=== PATIENT | female | born 1990 | race Caucasian/White ===

== ENCOUNTER 2016-12-04 05:35 | Inpatient (IN) | payer OTHER ==
[~2016-12-04] VITALS: Ht 157.5 cm; Wt 66.2 kg
[~2016-12-04 05:35] MED LIST: FERR325T39 PO; IBUP800T28 PO; PREN1TAB47 PO
[2016-12-04] MEDS ORDERED: Oxytocin 30 Units/500 mL LR Premix IV ONE (05:45)
[2016-12-04] MEDS ORDERED: Lactated Ringer's 1,000 ML IV SCH (06:21)
[2016-12-04] MEDS ORDERED: Benzocaine (Dermoplast) 20% 60 Gm Spray TOPICAL PRN (06:25)
[2016-12-04] MEDS ORDERED: Methylergonovine 0.2 mg/mL Inj IM PRN (06:25)
[2016-12-04] MEDS ORDERED: Witch Hazel-Glycerin Pads TOPICAL PRN (06:25)
[2016-12-04] MEDS ORDERED: LANOlin HPA 7 Gm Ointment TOPICAL PRN (06:25)
[2016-12-04] MEDS ORDERED: Carboprost 250 mCg/mL Inj IM PRN (06:25)
[2016-12-04] MEDS ORDERED: Hemorrhage Kit, Post Partum XX ONE (06:25)
[2016-12-04] MEDS ORDERED: Oxytocin 30 Units/500 mL LR 30 UNITS in IV Premix 1 EACH IV PRN (06:25)
[2016-12-04] MEDS ORDERED: HYDROcodone-APAP 5-325 mg Tablet PO PRN (06:25)
[2016-12-04] MEDS ORDERED: Oxytocin 10 Unit/mL Inj IM PRN (06:25)
--- NOTE | 2016-12-04 07:50 | HP ---
[address] [address] HISTORY AND PHYSICAL PATIENT: DIANNA JURADO : 1990 MR#: [id number] ADMIT: 12/04/2016 JOB ID: [id number] CHIEF COMPLAINT: Increasing contractions at term. HISTORY OF PRESENT ILLNESS: A 26-year-old, 3, three para 2, with an EDC of December 06, 2016 based on an LMP of March 01, 2016 and presents to the [facility] completely dilated with a bulging bag and a strong urge to push. She goes on to have a rapid delivery. When last checked in the office she was 4 cm dilated. PAST GYNECOLOGIC HISTORY: 3, para 2. First delivery in 2011 to a 7 pounds 9 ounce female pushed for 4 hours but no other complications. In 2013 she delivered at term at 6 pounds 14 ounce male, no complications. Third is her current. LABS: Blood type AB positive, antibody screen negative, rubella immune. Serology and hepatitis B surface antigen tests were negative. HIV test negative at the beginning of . Hematocrit 33.8 at 28 weeks. She is GBS positive by urine screen done at the beginning of . Gonorrhea and Chlamydia negative at that same time. A 28 week glucose tolerance test showed a fasting of 80, a 1-hour of 136, a 2-hour of 119. She presented late to care for risk screen. Her Pap was normal at the beginning of . ISSUES: 1. Establish care at 18 weeks. 2. GBS positive by urine culture. 3. History of issues, but declines a consultation at delivery. SOCIAL HISTORY: She is a , mother of two, nonsmoker. Does not drink alcohol during . She has previously denied recreational drug use. FAMILY HISTORY: None significant. PAST SURGICAL HISTORY: History of wisdom tooth extraction. REVIEW OF SYSTEMS: Unobtainable. PHYSICAL EXAMINATION: Please see nursing notes for vital signs. The patient is actively pushing completely dilated, +1 station. Membranes are ruptured. She goes on to deliver precipitously as per next note. ASSESSMENT: 1. Gravid at term. 2. GBS positive without time for GBS prophylaxis. 3. Precipitous delivery. [facility]
--- NOTE | 2016-12-04 07:58 | OP ---
[address] [address] OPERATIVE REPORT PATIENT: DIANNA JURADO : 1990 MR#: [id number] ADMIT: 12/04/2016 JOB ID: [id number] DELIVERY NOTE DATE OF DELIVERY: 12/04/2016 DELIVERY POSITION: OA. APGARS: 8 and 9. DELIVERY WEIGHT: 3460 grams (7 pounds 10 ounces), female. UMBILICAL CORD: Three-vessel cord. Normal appearance and length. PLACENTA: Side cord insertion. Normal appearance. No evidence of retained fragments. ESTIMATED BLOOD LOSS: 200 cc. ANESTHESIA: None. LACERATIONS: None. COMPLICATIONS: Precipitous delivery. The patient presented to the center 10 cm dilated with a bulging bag. Membranes ruptured on transfer to her room. She had a strong urge to push. She pushed only briefly, delivering without complication. Shoulders delivered easily. Placenta delivered quite quickly thereafter. Cord blood was therefore collected after placenta was delivered. Perineum inspected and showed no visible lacerations. Her fundus is firm. Her bleeding is slowing. I do not anticipate her needing an IV. Patient is GBS positive and did not have adequate time for prophylaxis due to her rapid labor. She plans to breastfeed. She is AB positive, rubella immune. Sponge and needle counts were correct after delivery. [facility]
--- NOTE | 2016-12-05 08:52 | PCM.DIOB ---
Obstetrical Disch Instruction Date of Service: Dec 05, 2016 Dates of Hospitalization Date of Hospital Admission Dec 04, 2016 at 05:45 Providers Admitting Physician: Kobe Thompson MD Primary Care Physician: Adalberto Mcdowell MD Attending Physician: Kobe Thompson MD Discharge Diagnosis Problems: (1) Encounter for full-term uncomplicated delivery Permanent Comment: Doing well on day #1 -- wants to be discharged. Last Edited By: Adalberto Mcdowell MD on May 28, 2014 07:11 Status: Acute ICD Code: O80 Diet Discharge Diet: No restrictions Activity Discharge Activity-General: No restrictions Dressing and Incisional Care Hygiene: May shower Follow Up Plan Follow-up Provider (F9): Kobe Thompson MD Follow-up appointment: Weeks (6) Call your provider for: Fever or Chills, Shortness of breath, Heavy vaginal bleeding, Excessive constipation, Red painful breasts Kobe Thompson MD Dec 05, 2016 08:51
[2016-12-05] MEDS ORDERED: IBUP-1827 PO (08:54)
[2016-12-05] MEDS ORDERED: DOCU-41 PO (08:54)
--- NOTE | 2016-12-05 09:48 | DIS ---
[address] [address] DISCHARGE SUMMARY PATIENT: DIANNA JURADO : 1990 MR#: [id number] ADMIT: 12/04/2016 JOB ID: [id number] DIS: 12/05/2016 DISCHARGE DIAGNOSES: 1. Precipitous vaginal delivery at term. 2. Group B Strep positive, incompletely treated due to problem #1. ALLERGIES: None known. DISCHARGE MEDICATIONS: 1. Ibuprofen 600 mg q.6 h. p.r.n. pain. 2. Docusate sodium 100 mg p.o. b.i.d. p.r.n. constipation. 3. vitamins 1 tablet daily. DISCHARGE INSTRUCTIONS: 1. Follow up with Dr. Thompson in six weeks. 2. Activity, diet, and breast feeding ad apple. 3. Call for increased bleeding, fevers, signs or symptoms of infection, or other complications. HOSPITAL COURSE: This is a 26-year-old, now 3 para 3, who presented at 39+ weeks gestation at 10 cm dilation, promptly ruptured membranes, and went on to have a precipitous vaginal delivery of a 7 pound 10 ounce viable female in the OA position. , she had one episode of increased bleeding with some passage of membranes that resolved with a single dose of Methergine. The following day, her bleeding is slowing. Her hematocrit is stable at 37.7 (staff was unable to obtain an initial hematocrit due to the rapidity of her labor). She had some elevated blood pressures after the Methergine, which resolved the next day. The patient has a history of breast feeding difficulties, but declines a consult. She is feeding her infant well and reports no significant breast pain. She was GBS positive, incompletely treated, but declined a 48 hour observation period and will go home today with follow up tomorrow in my office for the . She will call sooner if problems. [facility]
[2016-12-05 10:28] VITALS: BP 139/74; PULSE 68; RESP 18
[2016-12-05] MEDS ORDERED: Oxytocin 10 Unit/mL Inj ONE (11:23)
== END 2016-12-05 11:24 | disposition home or self-care (01) | DRG 775 ==
LOC: FBCO 05:35 → FBC 05:45
PROVIDERS: ADMIT Family Medicine; ATTEND Family Medicine
PROC: 10E0XZZ Delivery of Products of Conception, External Approach (ICD-10-PCS; principal; 2016-12-04)
DX: O62.3 Precipitate labor (principal); O09.33 Supervision of pregnancy with insufficient antenatal care, third trimester; O99.824 Streptococcus B carrier state complicating childbirth; Z37.0 Single live birth; Z3A.39 39 weeks gestation of pregnancy